=== PATIENT | female | born 1990 | race Caucasian/White ===

== ENCOUNTER 2017-05-09 03:52 | Emergency (ER) | payer SELFPAY, OTHER | END 2017-05-09 06:39 | disposition left against medical advice (07) | LOC: FTE 06:39 | DX: Z53.21 Procedure and treatment not carried out due to patient leaving prior to being seen by health care provider (principal) ==

== ENCOUNTER 2017-06-28 12:12 | Emergency (ER) | payer OTHER ==
[2017-06-28 12:52] LABS: ADD MAN DIFF? NO
[2017-06-28 12:53] LABS: BASOPHILS % 0.4 % (0.0-2.0); EOSINOPHILS # 0.2 10^3/ul (0.0-0.5); HEMATOCRIT 35.5 % (37.0-47.0); HEMOGLOBIN 11.7 g/dl (12.0-16.0); LYMPHOCYTES # 2.3 10^3/ul (0.8-2.9); LYMPHOCYTES % 28.5 % (15.0-51.0); MEAN CORPUSCULAR HEMOGLOBIN 28.7 pg (29.0-33.0); MEAN CORPUSCULAR VOLUME 87.2 fl (82.0-101.0); MEAN PLATELET VOLUME 10.1 fl (7.4-10.4); MONOCYTE # 0.4 10^3/ul (0.3-0.9); MONOCYTES % 5.2 % (0.0-11.0); NEUTROPHIL # 5.1 10^3/ul (1.6-7.5); NEUTROPHILS % 63.6 % (39.0-77.0); PLATELET COUNT 309 10^3/UL (140-415); RED BLOOD COUNT 4.07 10^6/ul (4.20-5.40); RED CELL DISTRIBUTION WIDTH 14.6 % (11.5-14.5)
[2017-06-28 13:10] LABS: ALANINE AMINOTRANSFERASE 22 IU/L (13-69); ALBUMIN 4.6 g/dl (3.3-4.9); ALBUMIN/GLOBULIN RATIO 1.24; ALKALINE PHOSPHATASE 115 IU/L (42-121); ANION GAP 17 (8-16); ASPARTATE AMINO TRANSFERASE 16 IU/L (15-46); BILIRUBIN,INDIRECT 0.1 mg/dl (0-1.1); BILIRUBIN,TOTAL 0.1 mg/dl (0.2-1.3); BLOOD UREA NITROGEN 11 mg/dl (7-20); CALCIUM 9.6 mg/dl (8.4-10.2); CARBON DIOXIDE 25 mmol/L (21-31); CHLORIDE 104 mmol/L (97-110); CREATININE 0.77 mg/dl (0.44-1.00); GLUCOSE 91 mg/dl (70-220); LIPASE 69 U/L (23-300); POTASSIUM 4.4 mmol/L (3.5-5.1); SODIUM 142 mmol/L (135-144); TOTAL PROTEIN 8.3 g/dl (6.1-8.1)
[2017-06-28 13:12] LABS: ADD UMIC YES; UR ASCORBIC ACID NEGATIVE (NEGATIVE); UR BACTERIA FEW /HPF (NONE SEEN); UR BILIRUBIN (Dip) NEGATIVE (NEGATIVE); UR BLOOD (Dip) 2+ mg/dL (NEGATIVE); UR CLARITY SLIGHTLY CLOUDY (CLEAR); UR COLOR YELLOW (YELLOW); UR GLUCOSE (Dip) NEGATIVE (NEGATIVE); UR KETONES (Dip) NEGATIVE (NEGATIVE); UR LEUKOCYTE ESTERASE (Dip) 3+ Leu/ul (NEGATIVE); UR NITRITE (Dip) NEGATIVE (NEGATIVE); UR RBC 1 /HPF (0-5); UR SQUAMOUS EPITHELIAL CELL FEW /HPF (FEW); UR TOTAL PROTEIN (Dip) NEGATIVE (NEGATIVE); UR UROBILINOGEN (Dip) NEGATIVE (NEGATIVE); UR WBC 13 /HPF (0-5)
== END 2017-06-28 14:10 | disposition home or self-care (01) ==
LOC: FTE 12:12
DX: O23.41 Unspecified infection of urinary tract in pregnancy, first trimester (principal); R10.13 Epigastric pain; R10.2 Pelvic and perineal pain; Z3A.01 Less than 8 weeks gestation of pregnancy
CPT/HCPCS: 36415; 76705; 76801; 76817; 80053; 81001; 83690; 84702; 85025; 86900; 86901; 99285-25

== ENCOUNTER 2018-02-28 00:34 | Inpatient (IN) | payer OTHER ==
[2018-02-28] MEDS ORDERED: CARBOPROST 250 MCG INJ IM (04:30)
[2018-02-28] MEDS ORDERED: OXYTOCIN 30 UNITS/LR 500 ML IV ×2 (04:30)
[2018-02-28] MEDS ORDERED: MISOPROSTOL 200 MCG TAB PR (04:30)
[2018-02-28 04:45] LABS: ADD MAN DIFF? NO
[2018-02-28 04:51] LABS: BASOPHILS % 0.4 % (0.0-2.0); EOSINOPHILS # 0.1 10^3/ul (0.0-0.5); EOSINOPHILS % 1.3 % (0.0-7.0); HEMATOCRIT 33.4 % (37.0-47.0); HEMOGLOBIN 10.5 g/dl (12.0-16.0); LYMPHOCYTES % 19.2 % (15.0-51.0); MEAN CORPUSCULAR HEMOGLOBIN 27.5 pg (29.0-33.0); MEAN CORPUSCULAR HGB CONC 31.4 g/dl (32.0-37.0); MEAN CORPUSCULAR VOLUME 87.4 fl (82.0-101.0); MEAN PLATELET VOLUME 11.1 fl (7.4-10.4); MONOCYTE # 0.6 10^3/ul (0.3-0.9); MONOCYTES % 5.6 % (0.0-11.0); NEUTROPHIL # 7.5 10^3/ul (1.6-7.5); NEUTROPHILS % 72.7 % (39.0-77.0); PLATELET COUNT 240 10^3/UL (140-415); RED BLOOD COUNT 3.82 10^6/ul (4.20-5.40); RED CELL DISTRIBUTION WIDTH 16.6 % (11.5-14.5)
[2018-02-28 04:51] LABS: WHITE BLOOD COUNT 10.3 10^3/ul (4.8-10.8)
[2018-02-28] MEDS: LACTATED RINGER'S 1,000 ML IV ×5 (04:56→23:54)
[2018-02-28 05:10] LABS: INR 0.82; PROTIME 11.4 Sec (11.9-14.9); PT RATIO 0.9
[2018-02-28 05:11] LABS: PARTIAL THROMBOPLASTIN TIME 24.8 Sec (23.0-35.0)
[2018-02-28] MEDS: AMPICILLIN 2 GM/NS (PMX) 100 ML IV (05:34)
[2018-02-28] MEDS: AMPICILLIN 1 GM/NS (PMX) 50 ML IV (08:20)
[2018-02-28 09:48] LABS: ADD UMIC YES; UR AMORPHOUS CRYSTAL FEW /HPF (NONE SEEN); UR ASCORBIC ACID NEGATIVE (NEGATIVE); UR BACTERIA FEW /HPF (NONE SEEN); UR BILIRUBIN (Dip) NEGATIVE (NEGATIVE); UR BLOOD (Dip) 3+ mg/dL (NEGATIVE); UR CLARITY CLEAR (CLEAR); UR COLOR STRAW (YELLOW); UR GLUCOSE (Dip) NEGATIVE (NEGATIVE); UR KETONES (Dip) NEGATIVE (NEGATIVE); UR LEUKOCYTE ESTERASE (Dip) 2+ Leu/ul (NEGATIVE); UR NITRITE (Dip) NEGATIVE (NEGATIVE); UR RBC 6 /HPF (0-5); UR SPECIFIC GRAVITY (Dip) 1.005 (1.003-1.030); UR SQUAMOUS EPITHELIAL CELL FEW /HPF (FEW); UR TOTAL PROTEIN (Dip) NEGATIVE (NEGATIVE); UR UROBILINOGEN (Dip) NEGATIVE (NEGATIVE); UR WBC 16 /HPF (0-5)
[2018-02-28 09:59] LABS: AMPHETAMINE/METHAMPHETAMINE Negative (NEGATIVE); BARBITURATES Negative (NEGATIVE); BENZODIAZEPINES Negative (NEGATIVE); CANNABINOIDS Negative (NEGATIVE); COCAINE Negative (NEGATIVE); OPIATES Negative (NEGATIVE)
[2018-02-28 10:29] LABS: HEPATITIS B SURFACE ANTIGEN NEGATIVE (NEGATIVE)
[2018-02-28] MEDS: OXYTOCIN 30 UNITS/LR 500 ML IV (10:37)
[2018-02-28 15:08] LABS: RAPID PLASMA REAGIN NONREACTIVE (NR)
[2018-02-28] MEDS: BUTORPHANOL 2 MG INJ IV (17:39)
[2018-02-28] MEDS ORDERED: HYDROmorphONE 0.5 MG/0.5 ML SYG IV ×2 (22:30)
[2018-02-28] MEDS ORDERED: NALOXONE (0.4 MG/ML) INJ IV (22:30)
[2018-02-28] MEDS ORDERED: KETOROLAC 30 MG INJ IV (22:30)
[2018-02-28] MEDS ORDERED: DIPHENHYDRAMINE 50 MG INJ IV (22:30)
[2018-02-28] MEDS ORDERED: FENTAnyl 2MCG/ML-ROPIV 0.2% 100 ML (22:45)
[2018-03-01] MEDS: AMPICILLIN 2 GM/NS (PMX) 100 ML IV (05:36)
[2018-03-01] MEDS ORDERED: LIDOCAINE 1% (MPF) 30 ML INJ (07:46)
[2018-03-01] MEDS: FENTAnyl 2MCG/ML-ROPIV 0.2% 100 ML BAG EPI (07:48)
[2018-03-01] MEDS: LACTATED RINGER'S 1,000 ML IV (08:14)
[2018-03-01] MEDS: ONDANSETRON 4 MG INJ IV (09:03)
[2018-03-01] MEDS: GENTAMICIN 120 MG/NS (PMX) 100 ML IVPB (09:28)
[2018-03-01] MEDS: ACETAMINOPHEN 325 MG TAB PO (09:29)
[2018-03-01] MEDS ORDERED: AMPICILLIN 1 GM/NS (PMX) 50 ML IV (09:30)
[2018-03-01] MEDS: MINERAL OIL LIGHT 10 ML VIAL TOP (10:13)
[2018-03-01] MEDS: METHYLERGONOVINE 0.2 MG INJ IM (10:17)
[2018-03-01] MEDS: OXYTOCIN 30 UNITS/LR 500 ML IV ×3 (10:42→18:35)
[2018-03-01 10:57] LABS: RUBELLA ANTIBODY - IGG 5.27 index
[2018-03-01] MEDS ORDERED: OXYTOCIN 30 UNITS/LR 500 ML IV (11:00)
[2018-03-01] MEDS ORDERED: MISOPROSTOL 200 MCG TAB PR (11:00)
[2018-03-01] MEDS ORDERED: NACL 0.9% 3 ML SYG IV (11:00)
[2018-03-01] MEDS ORDERED: SENNA/DOCUSATE NA (8.6MG/50MG) TAB PO (11:00)
[2018-03-01] MEDS ORDERED: METHYLERGONOVINE 0.2 MG INJ IM (11:00)
[2018-03-01] MEDS ORDERED: CARBOPROST 250 MCG INJ IM (11:00)
[2018-03-01] MEDS ORDERED: ONDANSETRON 4 MG INJ IV (11:00)
[2018-03-01] MEDS ORDERED: OXYCODONE/ASPIRIN (4.88/325) TAB PO ×2 (11:00)
[2018-03-01] MEDS ORDERED: DIBUCAINE 1% 30 GM OINT TOP (11:00)
[2018-03-01] MEDS: IBUPROFEN 600 MG TAB PO ×2 (11:46→17:47)
[2018-03-01] MEDS: LIDOCAINE 1% (MPF) 30 ML INJ INJ (14:47)
[2018-03-01] MEDS: CEFAZOLIN 2 GM/50 ML (PMX) 50 ML IVPB ×2 (14:53→21:49)
[2018-03-01] MEDS: WITCH HAZEL/GLYCERIN PAD PR (17:39)
[2018-03-01] MEDS: LANOLIN 7 GM TUBE TOP (17:39)
[2018-03-01] MEDS: BENZOCAINE 20% 56 ML SPRAY TOP (17:39)
[2018-03-01] MEDS: SENNA/DOCUSATE NA (8.6MG/50MG) TAB PO (21:49)
[2018-03-02] MEDS: IBUPROFEN 600 MG TAB PO ×5 (00:02→23:36)
[2018-03-02] MEDS: CEFAZOLIN 2 GM/50 ML (PMX) 50 ML IVPB (06:26)
[2018-03-02 07:47] LABS: HEMATOCRIT 24.2 % (37.0-47.0); HEMOGLOBIN 7.6 g/dl (12.0-16.0); MEAN CORPUSCULAR HEMOGLOBIN 27.3 pg (29.0-33.0); MEAN CORPUSCULAR HGB CONC 31.4 g/dl (32.0-37.0); MEAN CORPUSCULAR VOLUME 87.1 fl (82.0-101.0); MEAN PLATELET VOLUME 11.4 fl (7.4-10.4); PLATELET COUNT 181 10^3/UL (140-415); RED BLOOD COUNT 2.78 10^6/ul (4.20-5.40); RED CELL DISTRIBUTION WIDTH 17.2 % (11.5-14.5)
[2018-03-02 07:47] LABS: WHITE BLOOD COUNT 14.5 10^3/ul (4.8-10.8)
[2018-03-02 07:51] LABS: POSITIVE DIFF @See below
[2018-03-02 07:52] LABS: ADD MAN DIFF? YES
[2018-03-02] MEDS: SENNA/DOCUSATE NA (8.6MG/50MG) TAB PO ×2 (08:37→21:28)
[2018-03-02 09:10] LABS: ANISOCYTOSIS 2+ (0-0); BAND NEUTROPHILS #M 2.6 10^3/ul (0.0-0.6); BAND NEUTROPHILS % (M) 18 % (0-4); BASOPHIL #M 0.1 10^3/ul (0.0-0.0); BASOPHILS % (M) 1 % (0-2); EOSINOPHILS % (M) 1 % (0-7); ERYTHROBLAST% (NRBC) (M) 1 % (0-0); LYMPHOCYTES #M 1.4 10^3/ul (0.8-2.9); LYMPHOCYTES % (M) 10 % (15-51); METAMYELOCYTES #M 0.4 10^3/ul (0.0-0.0); METAMYELOCYTES %M 3 % (0-0); MICROCYTOSIS 1+ (0-0); MONOCYTE #M 0.1 10^3/ul (0.3-0.9); MONOCYTES % (M) 1 % (0-11); PLATELET ESTIMATE NORMAL; POLYCHROMASIA 1+ (0-0); SEG NEUT #M 9.9 10^3/ul (1.6-7.5); SEGMENTED NEUTROPHILS (M) % 66 % (39-77)
[2018-03-02 10:02] LABS: RUBELLA ANTIBODY - IGM <20.00 AU/mL
[2018-03-02] MEDS: FERROUS SULFATE (EC) 325 MG TAB PO (21:28)
[2018-03-03] MEDS: IBUPROFEN 600 MG TAB PO ×2 (06:00→12:07)
[2018-03-03 07:51] LABS: ADD MAN DIFF? NO
[2018-03-03 07:54] LABS: WHITE BLOOD COUNT 11.7 10^3/ul (4.8-10.8)
[2018-03-03 07:54] LABS: BASOPHILS % 0.3 % (0.0-2.0); EOSINOPHILS # 0.2 10^3/ul (0.0-0.5); EOSINOPHILS % 1.5 % (0.0-7.0); HEMATOCRIT 24.6 % (37.0-47.0); HEMOGLOBIN 7.7 g/dl (12.0-16.0); LYMPHOCYTES % 17.1 % (15.0-51.0); MEAN CORPUSCULAR HEMOGLOBIN 27.6 pg (29.0-33.0); MEAN CORPUSCULAR HGB CONC 31.3 g/dl (32.0-37.0); MEAN CORPUSCULAR VOLUME 88.2 fl (82.0-101.0); MEAN PLATELET VOLUME 11.3 fl (7.4-10.4); MONOCYTE # 0.7 10^3/ul (0.3-0.9); NEUTROPHIL # 8.7 10^3/ul (1.6-7.5); NEUTROPHILS % 74.5 % (39.0-77.0); PLATELET COUNT 206 10^3/UL (140-415); RED BLOOD COUNT 2.79 10^6/ul (4.20-5.40); RED CELL DISTRIBUTION WIDTH 17.2 % (11.5-14.5)
[2018-03-03] MEDS: FERROUS SULFATE (EC) 325 MG TAB PO (09:29)
[2018-03-03] MEDS: SENNA/DOCUSATE NA (8.6MG/50MG) TAB PO (09:29)
== END 2018-03-03 15:15 | disposition home or self-care (01) | DRG 807 ==
LOC: OBT 00:34 → L-D 00:38 → PP1 03-01 16:03 → OBT 04:00 → L-D 04:00
PROVIDERS: Obstetrics & Gynecology
PROC: 10E0XZZ Delivery of Products of Conception, External Approach (ICD-10-PCS; principal; 2018-03-01)
PROC: 0W8NXZZ Division of Female Perineum, External Approach (ICD-10-PCS; 2018-03-01)
DX: O41.03X0 Oligohydramnios, third trimester, not applicable or unspecified (principal); Z37.0 Single live birth; O77.0 Labor and delivery complicated by meconium in amniotic fluid; Z3A.40 40 weeks gestation of pregnancy
CPT/HCPCS: 62319; 76815; 76818; 80307; 81001; 85025; 85610; 85730; 86592; 86762; 86850; 86900; 86901; 87340; 88307; 99464